=== PATIENT | female | born 1985 | race Two or more races ===

== ENCOUNTER 2024-10-14 17:01 | Emergency (ER) | payer MEDICARE, OTHER ==
[~2024-10-14] VITALS: Ht 167.6 cm; Wt 77.0 kg
[2024-10-14 17:08] VITALS: TEMP 36.8; O2SAT 100
[2024-10-14] MEDS: SODIUM CHLORIDE 0.9% 1,000 ML IV ONE (18:15)
[2024-10-14 18:17] LABS: BASOPHILS % 0.5 % (0.0-2.0); EOSINOPHILS % 2.5 % (0.0-5.0); HEMATOCRIT. 33.4 % (36.0-48.0); LYMPHOCYTES % 11.2 % (20.0-50.0); MEAN CORPUSCULAR HEMOGLOBIN 29.5 pg (28.0-32.0); MEAN CORPUSCULAR VOLUME 89.5 fL (81.0-99.0); MEAN PLATELET VOLUME 9.4 fl (7.4-10.4); MONOCYTES % 4.2 % (2.0-8.0); NEUTROPHILS % 81.6 % (40.0-76.0); PLATELET 247 x1000/uL (130-400); RED BLOOD CELL COUNT 3.74 mill/uL (4.2-5.4); RED CELL DISTRIBUTION WIDTH 12.7 % (11.6-14.6); WHITE BLOOD COUNT 8.7 x1000/uL (4.5-11.0)
[2024-10-14 18:29] LABS: CHLORIDE 103 mEq/L (98-107); SODIUM 137 mEq/L (136-145)
[2024-10-14 18:30] LABS: CARBON DIOXIDE 25 mEq/L (21-32)
[2024-10-14 18:34] LABS: HCG SCREEN NEGATIVE
[2024-10-14 18:35] LABS: CREATININE 0.7 mg/dL (0.6-1.0)
[2024-10-14 18:36] LABS: GLUCOSE 115 mg/dL (70-105); UREA NITROGEN BLOOD 7 mg/dL (9-23)
[2024-10-14 18:37] LABS: ALANINE AMINOTRANSFERASE < 7 IU/L (10-49); ALBUMIN 3.8 g/dL (3.2-4.8); ASPARTATE AMINOTRANSFERASE 10 IU/L (<34)
[2024-10-14 18:38] LABS: BILIRUBIN TOTAL 0.3 mg/dL (0.1-1.0); PROTEIN TOTAL 6.4 g/dL (6.0-8.3)
[2024-10-14 18:48] LABS: BILIRUBIN DIRECT < 0.1 mg/dL (<=3.0); ETHANOL BLOOD < 10 mg/dL (<10); TROPONIN I HIGH SENSITIVITY < 4 ng/L (3.0-34)
[2024-10-14 20:56] VITALS: BP 108/55; PULSE 62; RESP 16; O2SAT 99
== END 2024-10-14 21:34 | disposition home or self-care (01) ==
LOC: ER 17:01
DX: R55 Syncope and collapse (principal); F20.9 Schizophrenia, unspecified; Z88.1 Allergy status to other antibiotic agents; Z88.8 Allergy status to other drugs, medicaments and biological substances
CPT/HCPCS: 80076; 80048; 80320; 84703; 85025; 84484; 36415; 71045; 70450; 93005; 96360; 99285; J7030; G0480

== ENCOUNTER 2024-12-04 08:36 | Emergency (ER) | payer MEDICARE, OTHER ==
[~2024-12-04] VITALS: Ht 160 cm; Wt 58.0 kg
[~2024-12-04 08:36] MED LIST: CLON0.5T2 PO; DOCU100T PO; ERGO1250 PO; HALO5TAB2 PO; LEVE1000 MT; LITHTAB PO; OXCA600T20 PO; SENN-362 PO; SERT100T PO; TRAZ-252 PO
[2024-12-04 08:50] VITALS: TEMP 36.6; O2SAT 99
[2024-12-04] MEDS ORDERED: LEVE1000 MT (10:04)
[2024-12-04 10:18] VITALS: BP 98/67; PULSE 58; RESP 16; O2SAT 98
== END 2024-12-04 10:18 | disposition home or self-care (01) ==
LOC: ER 08:36
DX: R56.9 Unspecified convulsions (principal); F20.9 Schizophrenia, unspecified; Z76.0 Encounter for issue of repeat prescription; Z88.8 Allergy status to other drugs, medicaments and biological substances; Z88.1 Allergy status to other antibiotic agents; Z91.148 Patient's other noncompliance with medication regimen for other reason; Z79.899 Other long term (current) drug therapy; Z98.890 Other specified postprocedural states
CPT/HCPCS: 99281

== ENCOUNTER 2025-01-04 10:43 | Emergency (ER) | payer OTHER ==
[~2025-01-04] VITALS: Ht 167.6 cm; Wt 70.0 kg
[2025-01-04 10:48] VITALS: TEMP 36.6; O2SAT 100
[2025-01-04] MEDS ORDERED: LEVE1000 MT (11:18)
[2025-01-04 11:51] VITALS: BP 94/36; PULSE 67; RESP 15; O2SAT 95
== END 2025-01-04 11:53 | disposition home or self-care (01) ==
LOC: ER 10:43
DX: R56.9 Unspecified convulsions (principal); F20.9 Schizophrenia, unspecified; Z76.0 Encounter for issue of repeat prescription; Z79.899 Other long term (current) drug therapy; Z88.1 Allergy status to other antibiotic agents; Z88.8 Allergy status to other drugs, medicaments and biological substances
CPT/HCPCS: 99281; 99282